=== PATIENT | female | born 1990 | race Hispanic/Latino ===

== ENCOUNTER 2017-09-18 00:03 | Emergency (ER) | payer OTHER ==
[2017-09-18 00:09] VITALS: RESP 18
--- NOTE | 2017-09-18 01:03 | ED PDOC ---
HPI: Pediatric General Time Seen by Provider: 09/18/17 00:12 Chief Complaint (Nursing): Abnormal Skin Integrity Chief Complaint (Provider): Abnormal Skin Integrity History Per: Patient History/Exam Limitations: no limitations Onset/Duration Of Symptoms: Hrs Current Symptoms Are (Timing): Still Present Additional Complaint(s): Barb Villalobos is a 27 year old female with no past medical history who is presenting to the ED for evaluation on chin laceration s/p fall prior to arrival. Patient states that she went out drinking with friends and it was raining outside so she slipped and fell on the side walk, sustaining a laceration to the chin and an abrasion to the left knee. She denies any loss of consciousness, headache, neck pain, or back pain. Patient offers no other medical complaints at this time and denies any other injuries. PMD: Doctor, Jonah Past Medical History Reviewed: Historical Data, Nursing Documentation, Vital Signs Vital Signs: Last Vital Signs Temp 97.9 F 09/18/17 00:07 Pulse 84 09/18/17 00:07 Resp 18 09/18/17 00:07 BP 150/89 09/18/17 00:07 Pulse Ox 99 09/18/17 00:07 - Medical History PMH: No Chronic Diseases - Surgical History Surgical History: No Surg Hx - Family History Family History: States: Unknown Family Hx - Social History Current smoker - smoking cessation education provided: No (unkown) Alcohol: Social Drugs: Denies - Allergies Allergies/Adverse Reactions: Allergies Allergy/AdvReac Type Severity Reaction Status Date / Time clarithromycin [From Biaxin] Allergy RASH Verified 09/18/17 00:06 Review of Systems ROS Statement: Except As Marked, All Systems Reviewed And Found Negative Constitutional: Positive for: Other (chin laceration) Musculoskeletal: Positive for: Leg Pain (knee abrasion). Negative for: Neck Pain, Back Pain Neurological: Negative for: Headache, Other (loss of consciousness) Physical Exam - Reviewed Nursing Documentation Reviewed: Yes Vital Signs Reviewed: Yes - Physical Exam Comments: GENERAL APPEARANCE: Patient is awake, alert, oriented x 3, in mild painful distress. SKIN: Warm, dry; (-) cyanosis. (+) 3.5 cm deep laceration to submental area EYES: (-) conjunctival pallor, (-) scleral icterus. ENMT: Mucous membranes moist. NECK: (-) tenderness, (-) stiffness, (-) lymphadenopathy. CHEST AND RESPIRATORY: (-) rales, (-) rhonchi, (-) wheezes; breath sounds equal bilaterally. HEART AND CARDIOVASCULAR: (-) irregularity; (-) murmur, (-) gallop. ABDOMEN AND GI: (-) distention. (-) tenderness. (-) guarding, (-) rebound, (-) palpable masses, (-) CVA tenderness. BACK : (-) tenderness. EXTREMITIES: (-) deformity, (-) edema, (-) tenderness, (+) FROM, (+) distal pulses, (+) abrasion to left knee. NEURO AND PSYCH: Mental status as above; (-) focal findings. - ECG O2 Sat by Pulse Oximetry: 99 (RA) Pulse Ox Interpretation: Normal Medical Decision Making Medical Decision Making: Time: 00:56 Provider performed laceration repair. Patient tolerated procedure well and proper wound care was discussed with patient. Patient is with 2 female friends in the ER. She is AAOx3 with normal neuro exam , speaking in full sentences, no tremors, ambulating with a steady gait. Patient is stable for discharge, she will be leaving with 2 female friends. Advised to follow up with primary care physician in 1-2 days without fail. Return to the emergency room at any time for any new or worsening symptoms. Patient states she fully agrees with and understands discharge instructions. States that she agrees with the plan and disposition. Verbalized and repeated discharge instructions and plan. I have given the patient opportunity to ask any additional questions. Scribe Attestation: Documented by, Karoline Gibbs acting as a scribe for Carol Camacho PA-C. Provider Scribe Attestation: All medical record entries made by the Scribe were at my direction and personally dictated by me. I have reviewed the chart and agree that the record accurately reflects my personal performance of the history, physical exam, medical decision making, and the department course for this patient. I have also personally directed, reviewed, and agree with the discharge instructions and disposition. Procedures - Laceration/Wound Repair Face Wound Length (cm): 3.5 (chin) Wound's Depth, Shape: irregular (deep laceration) Wound Explored: clean Irrigated w/ Saline (ccs): 100 Betadine Prep?: Yes Anesthesia: 1% Lidocaine Volume Anesthetic (ccs): 3 Wound Repaired With: Sutures (internal sutures), Skin adhesive (wound approximated with dermabond after internal sutures were applied ) Deep Layer Suture Size/Type: 4:0 Number Deep Layer Sutures: 7 Wound Complexity: Intermediate Sterile Dressing Applied?: Yes Progress: Patient tolerated the procedure well. Disposition - Clinical Impression Clinical Impression: Head injury, Contusion of left knee, Facial laceration - Patient ED Disposition Is Patient to be Admitted: No Counseled Patient/Family Regarding: Diagnosis, Need For Followup - Disposition Disposition: Routine/Home Disposition Time: 01:15 Condition: STABLE Additional Instructions: Thank you for letting us take care of you today. You were treated for head injury, L knee contusion, chin laceration. The emergency medical care you received today was directed at your acute symptoms. It may take several days for your symptoms to resolve. Return to the Emergency Department if your symptoms worsen, do not improve, or if you have any other problems. Please contact your doctor in 2 days for re-evaluation and follow up / or call one of the physicians/clinics you have been referred to that are listed on the Patient Visit Information form that is included in your discharge packet. Bring any paperwork you were given at discharge with you along with any medications you are taking to your follow up visit. Our treatment cannot replace ongoing medical care by a primary care provider (PCP) outside of the emergency department. Thank you for allowing the [facility] team to be part of your care today. Instructions: Laceration Repair With Glue (DC), Contusion (DC), Laceration Repair With Stitches (DC), Minor Head Injury (DC) Forms: [employer] (Burmese), [facility] ED School/Work Excuse - PA / REORDERING CLERK / Resident Statement MD/DO has reviewed & agrees with the documentation as recorded.
[2017-09-18] MEDS ORDERED: Lidocaine 2% Inj (20ml) ONE (01:21)
[2017-09-18] MEDS ORDERED: Povidone Iodine Oint 10% Foilpak UD ONE (01:22)
[2017-09-18 02:30] VITALS: BP 117/73; PULSE 80; TEMP 99.2
[2017-09-18 03:40] VITALS: O2SAT 99
== END 2017-09-18 02:30 | disposition home or self-care (01) ==
LOC: H.ER 00:03
DX: S01.81XA Laceration without foreign body of other part of head, initial encounter (principal); S80.212A Abrasion, left knee, initial encounter; S09.90XA Unspecified injury of head, initial encounter; S80.02XA Contusion of left knee, initial encounter; W01.0XXA Fall on same level from slipping, tripping and stumbling without subsequent striking against object, initial encounter